=== PATIENT | female | born 1945 | race Caucasian/White ===

== ENCOUNTER 2024-03-13 13:30 | Inpatient (IN) | payer OTHER ==
[2024-03-13 15:19] LABS: BASO % 0.5 % (0-2.0); EOS % 1.6 % (0-4.5); HEMATOCRIT 40.8 % (32.4-45.2); HEMOGLOBIN 13.1 GM/dL (10.7-15.3); LYMPH % 18.7 % (8-40); MCH 30.3 pg (25.7-33.7); MCHC 32.1 g/dl (32.0-36.0); MEAN CELL VOLUME 94.2 fl (80-96); MEAN PLT VOLUME 10.9 fl (7.5-11.1); MONO % 6.1 % (3.8-10.2); NEUT % 73.1 % (42.8-82.8); PLATELET COUNT 158 10^3/uL (134-434); RBC 4.33 M/mm3 (3.60-5.2); RDW 16.5 % (11.6-15.6); WHITE BLOOD COUNT 9.5 K/mm3 (4.0-10.0)
[2024-03-13 15:26] LABS: INR 1.37 (0.83-1.09); PROTHROMBIN TIME (PATIENT) 15.3 SEC (9.7-13.0)
[2024-03-13 15:28] LABS: ACTIVATED PTT 18.9 SECONDS (25.2-36.5)
[2024-03-13] MEDS: SODIUM CHLORIDE 0.9% 500 ML INFUS.BAG IV ONE (15:29)
[2024-03-13 15:36] LABS: EPI CELLS 8 /uL (0-25.1); HYALINE CASTS 0 /uL (0-3.1); URINE APPEARANCE CLOUDY; URINE BACTERIA >9,000 /uL (0-1359); URINE BILIRUBIN NEGATIVE (NEGATIVE); URINE COLOR YELLOW; URINE GLUCOSE (UA) NEGATIVE (NEGATIVE); URINE KETONE NEGATIVE (NEGATIVE); URINE LEUK ESTERASE 3+ (NEGATIVE); URINE NITRITE NEGATIVE (NEGATIVE); URINE PROTEIN 1+ (NEGATIVE); URINE RBC 11 /uL (0-23.9); URINE UROBILINOGEN 0.2 mg/dL (0.2-1.0); URINE WBC 1071 /uL (0-25.8)
[2024-03-13 15:37] LABS: POTASSIUM 5.2 mmol/L (3.5-5.1)
[2024-03-13 15:41] LABS: ALBUMIN 3.3 g/dl (3.4-5.0); BLOOD UREA NITROGEN 39.8 mg/dL (7-18); CALCIUM 9.1 mg/dL (8.5-10.1); VENOUS O2 SATURATION 60.6 % (70-80); VENOUS PCO2 31.1 mmHg (38-52); VENOUS PH 7.43 (7.310-7.410)
[2024-03-13 15:44] LABS: BILIRUBIN,TOTAL 0.7 mg/dL (0.2-1); TOT PROT 6.2 g/dl (6.4-8.2)
[2024-03-13 15:46] LABS: CREATININE 1.9 mg/dL (0.55-1.3)
[2024-03-13] MEDS ORDERED: CEFTRIAXONE 1 GM/50 ML BAG ONE (15:57)
[2024-03-13] MEDS ORDERED: ACETAMINOPHEN INJECTION 100 ML IVPB ONE (16:30)
[2024-03-13] MEDS: ACETAMINOPHEN 1000 MG/100 ML BAG IVPB ONE (16:35)
[2024-03-13] MEDS ORDERED: ACETAMINOPHEN 1000 MG/100 ML BAG IVPB PRN (20:28)
[2024-03-13] MEDS: DEXTROSE 5%-0.45% SALINE 1,000 ML IV SCH (20:46)
[2024-03-14 03:55] VITALS: BMI 23.8
[2024-03-14] MEDS: NYSTATIN 500,000 UNITS/5 ML SUSPENSION PO SCH (05:53)
[2024-03-14] MEDS ORDERED: NYSTATIN 500,000 UNITS/5 ML SUSPENSION PO SCH (06:00)
[2024-03-14 07:33] LABS: POTASSIUM 3.6 mmol/L (3.5-5.1)
[2024-03-14 07:37] LABS: BASO % 0.5 % (0-2.0); EOS % 2.8 % (0-4.5); HEMATOCRIT 40.7 % (32.4-45.2); LYMPH % 18.7 % (8-40); MCH 30.3 pg (25.7-33.7); MCHC 31.9 g/dl (32.0-36.0); MEAN CELL VOLUME 94.9 fl (80-96); MEAN PLT VOLUME 11.1 fl (7.5-11.1); MONO % 5.9 % (3.8-10.2); NEUT % 72.1 % (42.8-82.8); PLATELET COUNT 163 10^3/uL (134-434); RBC 4.29 M/mm3 (3.60-5.2); WHITE BLOOD COUNT 7.4 K/mm3 (4.0-10.0)
[2024-03-14 07:39] LABS: BLOOD UREA NITROGEN 32.8 mg/dL (7-18); CALCIUM 8.6 mg/dL (8.5-10.1); MAGNESIUM 2.5 mg/dL (1.8-2.4)
[2024-03-14 07:43] LABS: CREATININE 1.6 mg/dL (0.55-1.3); PHOSPHOROUS 3.2 mg/dL (2.5-4.9)
[2024-03-14] MEDS ORDERED: COLCHICINE 0.6 MG CAPSULE PO SCH (10:00)
[2024-03-14] MEDS: MEMANTINE HCL 10 MG TABLET (FP) PO SCH (10:57)
[2024-03-14] MEDS: CEFTRIAXONE 1 GM in DEXTROSE 5%-WATER - 50 ML IVPB SCH (10:57)
[2024-03-14] MEDS: metoPROLOL SUCCINATE 25 MG TAB.SR.24H (FP) PO SCH (10:58)
[2024-03-14] MEDS: APIXABAN 2.5 MG TABLET PO SCH (10:58)
[2024-03-14] MEDS: ALLOPURINOL 100 MG TABLET (FP) PO SCH (10:58)
[2024-03-14] MEDS: VITAMINS A AND D TOPICAL OINTMENT TP SCH (11:06)
[2024-03-14] MEDS: MUPIROCIN 2% TOPICAL OINTMENT 22 GM TUBE TP SCH (11:06)
[2024-03-14] MEDS: D5-1/2NS+20 MEQ KCL - 20 MEQ/1,000 ML INFUS.BAG IV SCH (11:53)
[2024-03-14] MEDS: COLCHICINE 0.6 MG TAB PO ONE (11:54)
[2024-03-14] MEDS: DONEPEZIL HCL 10 MG TABLET (FP) PO SCH (22:01)
[2024-03-14] MEDS: DOCUSATE SODIUM 100 MG CAPSULE (FP) PO SCH (22:01)
[2024-03-15 07:26] LABS: BASO % 0.8 % (0-2.0); EOS % 2.9 % (0-4.5); HEMATOCRIT 35.7 % (32.4-45.2); HEMOGLOBIN 11.5 GM/dL (10.7-15.3); LYMPH % 21.2 % (8-40); MCH 30.6 pg (25.7-33.7); MCHC 32.3 g/dl (32.0-36.0); MONO % 7.3 % (3.8-10.2); NEUT % 67.8 % (42.8-82.8); PLATELET COUNT 137 10^3/uL (134-434); RBC 3.76 M/mm3 (3.60-5.2); RDW 16.4 % (11.6-15.6); WHITE BLOOD COUNT 6.1 K/mm3 (4.0-10.0)
[2024-03-15 07:41] LABS: POTASSIUM 4.1 mmol/L (3.5-5.1)
[2024-03-15 07:45] LABS: ALBUMIN 2.8 g/dl (3.4-5.0); BLOOD UREA NITROGEN 27.1 mg/dL (7-18); CALCIUM 8.4 mg/dL (8.5-10.1)
[2024-03-15 07:48] LABS: CREATININE 1.4 mg/dL (0.55-1.3)
[2024-03-15 07:50] LABS: BILIRUBIN,TOTAL 0.4 mg/dL (0.2-1); TOT PROT 5.2 g/dl (6.4-8.2)
[2024-03-15] MEDS: ERTAPENEM SODIUM 1 GM in SODIUM CHLORIDE 50 ML IVPB ONE ×2 (18:21→18:23)
[2024-03-16 06:11] VITALS: TEMP 97.3
[2024-03-16] MEDS: COLCHICINE 0.6 MG TAB PO SCH (10:09)
[2024-03-16] MEDS: FOSFOMYCIN TROMETHAMINE 3 GM/PKT FOR ORAL SOLUTION PO ONE (11:11)
[2024-03-16 15:05] VITALS: BP 117/64; PULSE 52; RESP 22
== END 2024-03-16 15:05 | DRG 689 ==
LOC: JER 13:30 → JERBED 17:03 → J4W 23:57
PROVIDERS: ADMIT Internal Medicine; ATTEND Family Medicine
DX: N39.0 Urinary tract infection, site not specified (principal); G92.8 Other toxic encephalopathy; E87.0 Hyperosmolality and hypernatremia; B37.0 Candidal stomatitis; I48.20 Chronic atrial fibrillation, unspecified; E86.0 Dehydration; M62.81 Muscle weakness (generalized); F03.90 Unspecified dementia, unspecified severity, without behavioral disturbance, psychotic disturbance, mood disturbance, and anxiety; I12.9 Hypertensive chronic kidney disease with stage 1 through stage 4 chronic kidney disease, or unspecified chronic kidney disease; N18.9 Chronic kidney disease, unspecified; R62.7 Adult failure to thrive; Z68.23 Body mass index [BMI] 23.0-23.9, adult; M10.9 Gout, unspecified; B96.4 Proteus (mirabilis) (morganii) as the cause of diseases classified elsewhere; Z95.0 Presence of cardiac pacemaker
CPT/HCPCS: 0241U-QW; 36415; 70450-TC; 71045-TC-FY; 76775-TC; 80048; 80053; 81003; 82803; 82962; 83605; 83735; 84100; 84443; 84484; 85025; 85610; 85730; 87040; 87086; 87186; 93005; 93010; 97116-GP; 97161-GP; 99285-25; J0131

== ENCOUNTER 2024-11-07 10:41 | Inpatient (IN) | payer OTHER ==
[2024-11-07 11:05] VITALS: BMI 24.7
[2024-11-07 12:53] LABS: BASO % 0.6 % (0-2.0); EOS % 2.5 % (0-4.5); HEMATOCRIT 36.6 % (32.4-45.2); LYMPH % 20.4 % (8-40); MCH 30.5 pg (25.7-33.7); MCHC 32.7 g/dl (32.0-36.0); MEAN CELL VOLUME 93.3 fl (80-96); MEAN PLT VOLUME 8.5 fl (7.5-11.1); MONO % 7.3 % (3.8-10.2); NEUT % 69.2 % (42.8-82.8); PLATELET COUNT 223 10^3/uL (134-434); RBC 3.92 M/mm3 (3.60-5.2); RDW 15.3 % (11.6-15.6); WHITE BLOOD COUNT 7.8 K/mm3 (4.0-10.0)
[2024-11-07 13:00] LABS: INR 1.69 (0.83-1.09); PROTHROMBIN TIME (PATIENT) 18.6 SEC (9.7-13.0)
[2024-11-07 13:03] LABS: ACTIVATED PTT 30.1 SECONDS (25.2-36.5)
[2024-11-07] MEDS ORDERED: ACETAMINOPHEN 325 MG TABLET (FP) ONE (13:24)
[2024-11-07 13:30] LABS: POTASSIUM 4.9 mmol/L (3.5-5.1)
[2024-11-07 13:33] LABS: BLOOD UREA NITROGEN 61.8 mg/dL (7-18)
[2024-11-07 13:34] LABS: ALBUMIN 3.6 g/dl (3.4-5.0); CALCIUM 9.2 mg/dL (8.5-10.1)
[2024-11-07 13:36] LABS: CREATININE 1.8 mg/dL (0.55-1.3)
[2024-11-07 13:38] LABS: BILIRUBIN,TOTAL 0.4 mg/dL (0.2-1); TOT PROT 6.7 g/dl (6.4-8.2)
[2024-11-07] MEDS: ACETAMINOPHEN 325 MG TABLET (FP) PO ONE (13:39)
[2024-11-07] MEDS ORDERED: CEFTRIAXONE 2 GM-D5W BAG 2 GM/50 ML BAG IVPB ONE (19:45)
[2024-11-07] MEDS: CEFTRIAXONE 2 GM-D5W BAG 2 GM/50 ML BAG IVPB SCH (19:54)
[2024-11-08 08:18] LABS: BASO % 0.7 % (0-2.0); EOS % 2.9 % (0-4.5); HEMATOCRIT 38.4 % (32.4-45.2); HEMOGLOBIN 12.4 GM/dL (10.7-15.3); LYMPH % 21.9 % (8-40); MCH 30.1 pg (25.7-33.7); MCHC 32.2 g/dl (32.0-36.0); MEAN CELL VOLUME 93.6 fl (80-96); MEAN PLT VOLUME 8.7 fl (7.5-11.1); MONO % 6.3 % (3.8-10.2); NEUT % 68.2 % (42.8-82.8); PLATELET COUNT 220 10^3/uL (134-434); WHITE BLOOD COUNT 6.6 K/mm3 (4.0-10.0)
[2024-11-08 08:20] LABS: POTASSIUM 5.4 mmol/L (3.5-5.1)
[2024-11-08 08:22] LABS: ALBUMIN 3.7 g/dl (3.4-5.0); BLOOD UREA NITROGEN 52.3 mg/dL (7-18); CALCIUM 9.5 mg/dL (8.5-10.1)
[2024-11-08 08:25] LABS: CREATININE 1.7 mg/dL (0.55-1.3)
[2024-11-08 08:27] LABS: BILIRUBIN,TOTAL 0.4 mg/dL (0.2-1)
[2024-11-08] MEDS ORDERED: CEFTRIAXONE 2 GM-D5W BAG 2 GM/50 ML BAG IVPB ONE (11:04)
[2024-11-09] MEDS: metoPROLOL SUCCINATE 25 MG TAB.SR.24H (FP) PO SCH ×2 (10:45→20:02)
[2024-11-09] MEDS: ENOXAPARIN NA (PORCINE) 40 MG/0.4 ML DISP.SYRIN SQ SCH (10:45)
[2024-11-09] MEDS: ALLOPURINOL 100 MG TABLET (FP) PO SCH (10:45)
[2024-11-09] MEDS: VITAMINS A AND D TOPICAL OINTMENT TP SCH (10:55)
[2024-11-09] MEDS: MUPIROCIN 2% TOPICAL OINTMENT 22 GM TUBE TP SCH (10:55)
[2024-11-09 11:58] LABS: POTASSIUM 4.8 mmol/L (3.5-5.1)
[2024-11-09 12:00] LABS: BLOOD UREA NITROGEN 52.3 mg/dL (7-18); CALCIUM 9.3 mg/dL (8.5-10.1)
[2024-11-09 12:03] LABS: CREATININE 1.8 mg/dL (0.55-1.3)
[2024-11-09] MEDS: SODIUM CHLORIDE 0.45% 1,000 ML IV SCH ×2 (13:01→20:02)
[2024-11-09] MEDS: NYSTATIN 500,000 UNITS/5 ML SUSPENSION PO SCH (13:14)
[2024-11-09] MEDS: MEMANTINE HCL 10 MG TABLET (FP) PO SCH ×2 (20:02→22:08)
[2024-11-09] MEDS ORDERED: DONEPEZIL HCL 10 MG TABLET (FP) PO SCH (22:00)
[2024-11-09] MEDS: DONEPEZIL HCL 10 MG TABLET (FP) PO SCH (22:08)
[2024-11-09] MEDS: DOCUSATE SODIUM 100 MG CAPSULE (FP) PO SCH (22:09)
[2024-11-10 09:22] LABS: POTASSIUM 4.5 mmol/L (3.5-5.1)
[2024-11-10 09:25] LABS: CALCIUM 8.8 mg/dL (8.5-10.1)
[2024-11-10 09:26] LABS: BLOOD UREA NITROGEN 42.8 mg/dL (7-18)
[2024-11-10 09:31] LABS: CREATININE 1.8 mg/dL (0.55-1.3)
[2024-11-11 09:17] LABS: BASO % 0.4 % (0-2.0); EOS % 4.4 % (0-4.5); HEMATOCRIT 34.6 % (32.4-45.2); HEMOGLOBIN 10.8 GM/dL (10.7-15.3); LYMPH % 22.2 % (8-40); MCH 29.6 pg (25.7-33.7); MCHC 31.4 g/dl (32.0-36.0); MEAN CELL VOLUME 94.5 fl (80-96); MEAN PLT VOLUME 8.6 fl (7.5-11.1); PLATELET COUNT 175 10^3/uL (134-434); RBC 3.66 M/mm3 (3.60-5.2); RDW 14.9 % (11.6-15.6); WHITE BLOOD COUNT 4.9 K/mm3 (4.0-10.0)
[2024-11-11 09:45] LABS: POTASSIUM 4.6 mmol/L (3.5-5.1)
[2024-11-11 09:55] LABS: BLOOD UREA NITROGEN 35.6 mg/dL (7-18)
[2024-11-11 09:56] LABS: CALCIUM 8.5 mg/dL (8.5-10.1)
[2024-11-11 09:58] LABS: CREATININE 1.5 mg/dL (0.55-1.3)
[2024-11-11] MEDS: ACETAMINOPHEN 500 MG TABLET (FP) PO PRN (18:04)
[2024-11-12] MEDS: MELATONIN 5 MG TABLETS PO ONE (02:25)
[2024-11-12 09:34] LABS: BASO % 0.6 % (0-2.0); EOS % 4.3 % (0-4.5); HEMOGLOBIN 10.9 GM/dL (10.7-15.3); MCH 30.3 pg (25.7-33.7); MCHC 32.1 g/dl (32.0-36.0); MEAN CELL VOLUME 94.5 fl (80-96); MEAN PLT VOLUME 8.6 fl (7.5-11.1); NEUT % 65.1 % (42.8-82.8); PLATELET COUNT 171 10^3/uL (134-434); RDW 14.7 % (11.6-15.6); WHITE BLOOD COUNT 5.3 K/mm3 (4.0-10.0)
[2024-11-12 09:44] LABS: INR 1.17 (0.83-1.09); PROTHROMBIN TIME (PATIENT) 12.8 SEC (9.7-13.0)
[2024-11-12 09:46] LABS: ACTIVATED PTT 32.6 SECONDS (25.2-36.5)
[2024-11-12 10:12] LABS: CALCIUM 8.3 mg/dL (8.5-10.1)
[2024-11-12 10:16] LABS: CREATININE 1.3 mg/dL (0.55-1.3)
[2024-11-12] MEDS ORDERED: ONDANSETRON 4 MG/2 ML VIAL IVPUSH PRN (14:32)
[2024-11-12] MEDS: LACTATED RINGERS SOLUTION 1,000 ML IV SCH (17:00)
[2024-11-13 08:08] LABS: BASO % 0.7 % (0-2.0); EOS % 3.7 % (0-4.5); HEMATOCRIT 32.7 % (32.4-45.2); HEMOGLOBIN 10.8 GM/dL (10.7-15.3); LYMPH % 19.6 % (8-40); MCH 30.9 pg (25.7-33.7); MCHC 32.9 g/dl (32.0-36.0); MEAN CELL VOLUME 93.9 fl (80-96); MEAN PLT VOLUME 8.6 fl (7.5-11.1); MONO % 8.1 % (3.8-10.2); NEUT % 67.9 % (42.8-82.8); PLATELET COUNT 172 10^3/uL (134-434); RBC 3.48 M/mm3 (3.60-5.2); RDW 14.6 % (11.6-15.6); WHITE BLOOD COUNT 6.3 K/mm3 (4.0-10.0)
[2024-11-13 08:21] LABS: POTASSIUM 4.8 mmol/L (3.5-5.1)
[2024-11-13 08:27] LABS: BLOOD UREA NITROGEN 24.1 mg/dL (7-18)
[2024-11-13 08:30] LABS: CREATININE 1.2 mg/dL (0.55-1.3)
[2024-11-13] MEDS: DEXTROSE 5%-0.45% SALINE 1,000 ML IV SCH (12:30)
[2024-11-13] MEDS: MUPIROCIN 2% TOPICAL OINTMENT 22 GM TUBE TP SCH (21:29)
[2024-11-14] MEDS: VITAMINS A AND D TOPICAL OINTMENT TP SCH (09:02)
[2024-11-14 10:36] LABS: BASO % 0.6 % (0-2.0); HEMATOCRIT 33.8 % (32.4-45.2); HEMOGLOBIN 10.9 GM/dL (10.7-15.3); LYMPH % 24.5 % (8-40); MCH 30.3 pg (25.7-33.7); MCHC 32.4 g/dl (32.0-36.0); MEAN CELL VOLUME 93.4 fl (80-96); MEAN PLT VOLUME 8.6 fl (7.5-11.1); MONO % 8.8 % (3.8-10.2); NEUT % 62.1 % (42.8-82.8); PLATELET COUNT 182 10^3/uL (134-434); RBC 3.62 M/mm3 (3.60-5.2); RDW 15.3 % (11.6-15.6); WHITE BLOOD COUNT 5.6 K/mm3 (4.0-10.0)
[2024-11-14 11:00] LABS: POTASSIUM 5.2 mmol/L (3.5-5.1)
[2024-11-14] MEDS ORDERED: MIDAZOLAM HCL 2 MG/2 ML SINGLE DOSE VIAL ONE (11:00)
[2024-11-14 11:03] LABS: CALCIUM 8.9 mg/dL (8.5-10.1)
[2024-11-14 11:04] LABS: BLOOD UREA NITROGEN 20.1 mg/dL (7-18)
[2024-11-14 11:07] LABS: CREATININE 1.4 mg/dL (0.55-1.3)
[2024-11-14] MEDS: LIDOCAINE HCL 1%, 10 MG/ML (20ML VIAL) NR ONE ×3 (11:36)
[2024-11-14] MEDS: IOHEXOL 180 MG/1 ML ML IJ ONE ×3 (11:40)
[2024-11-14] MEDS: HEPARIN NA (PORCINE) 5,000 UNITS/ML 1ML VIAL SQ ONE ×2 (11:46)
[2024-11-14] MEDS ORDERED: HEPARIN NA (PORCINE) 5,000 UNITS/ML 1ML VIAL ONE (11:49)
[2024-11-14] MEDS ORDERED: ACETAMINOPHEN 500 MG TABLET (FP) PO PRN (13:00)
[2024-11-14] MEDS: DEXTROSE 5%-0.45% SALINE 1,000 ML IV SCH (13:06)
[2024-11-14] MEDS: LACTATED RINGERS SOLUTION 1,000 ML IV SCH (13:59)
[2024-11-14] MEDS: SODIUM ZIRCONIUM CYCLOSILICATE (LOKELMA) 5 GM PACKET PO SCH (15:31)
[2024-11-14] MEDS: NYSTATIN 500,000 UNITS/5 ML SUSPENSION PO SCH (18:42)
[2024-11-14] MEDS: DONEPEZIL HCL 10 MG TABLET (FP) PO SCH (21:12)
[2024-11-14] MEDS: DOCUSATE SODIUM 100 MG CAPSULE (FP) PO SCH (21:12)
[2024-11-14] MEDS: MUPIROCIN 2% TOPICAL OINTMENT 22 GM TUBE TP SCH (21:13)
[2024-11-14] MEDS: MEMANTINE HCL 10 MG TABLET (FP) PO SCH (21:13)
[2024-11-15 08:12] LABS: HEMATOCRIT 32.7 % (32.4-45.2); HEMOGLOBIN 10.7 GM/dL (10.7-15.3); MCH 30.6 pg (25.7-33.7); MCHC 32.6 g/dl (32.0-36.0); MEAN CELL VOLUME 94.1 fl (80-96); MEAN PLT VOLUME 8.3 fl (7.5-11.1); PLATELET COUNT 176 10^3/uL (134-434); RBC 3.48 M/mm3 (3.60-5.2); RDW 14.8 % (11.6-15.6); WHITE BLOOD COUNT 6.5 K/mm3 (4.0-10.0)
[2024-11-15 08:30] LABS: POTASSIUM 4.6 mmol/L (3.5-5.1)
[2024-11-15 08:35] LABS: BLOOD UREA NITROGEN 16.2 mg/dL (7-18); CALCIUM 8.7 mg/dL (8.5-10.1)
[2024-11-15 08:39] LABS: CREATININE 1.2 mg/dL (0.55-1.3)
[2024-11-15] MEDS: CEFTRIAXONE 2 GM-D5W BAG 2 GM/50 ML BAG IVPB SCH (09:43)
[2024-11-15] MEDS: SODIUM ZIRCONIUM CYCLOSILICATE (LOKELMA) 5 GM PACKET PO SCH (09:43)
[2024-11-15] MEDS: metoPROLOL SUCCINATE 25 MG TAB.SR.24H (FP) PO SCH (09:43)
[2024-11-15] MEDS: ALLOPURINOL 100 MG TABLET (FP) PO SCH (09:43)
[2024-11-15] MEDS: ENOXAPARIN NA (PORCINE) 40 MG/0.4 ML DISP.SYRIN SQ SCH (09:43)
[2024-11-15] MEDS: VITAMINS A AND D TOPICAL OINTMENT TP SCH (09:44)
[2024-11-16 13:39] VITALS: TEMP 97.7
[2024-11-16 15:22] VITALS: BP 141/64; PULSE 73; RESP 18
== END 2024-11-16 18:53 | DRG 270 ==
LOC: JER 10:41 → JERBED 13:50 → J8W 11-08 20:11
PROVIDERS: ADMIT Internal Medicine; ATTEND Internal Medicine
PROC: 04CQ3ZZ Extirpation of Matter from Left Anterior Tibial Artery, Percutaneous Approach (ICD-10-PCS; principal; 2024-11-15)
PROC: 047Q3ZZ Dilation of Left Anterior Tibial Artery, Percutaneous Approach (ICD-10-PCS; 2024-11-15)
PROC: 047U3ZZ Dilation of Left Peroneal Artery, Percutaneous Approach (ICD-10-PCS; 2024-11-15)
PROC: 02HV33Z Insertion of Infusion Device into Superior Vena Cava, Percutaneous Approach (ICD-10-PCS; 2024-11-15)
PROC: B518ZZA Fluoroscopy of Superior Vena Cava, Guidance (ICD-10-PCS; 2024-11-15)
DX: I70.208 Unspecified atherosclerosis of native arteries of extremities, other extremity (principal); G92.8 Other toxic encephalopathy; I48.20 Chronic atrial fibrillation, unspecified; N17.9 Acute kidney failure, unspecified; L97.518 Non-pressure chronic ulcer of other part of right foot with other specified severity; L97.528 Non-pressure chronic ulcer of other part of left foot with other specified severity; M86.8X7 Other osteomyelitis, ankle and foot; L03.031 Cellulitis of right toe; I70.209 Unspecified atherosclerosis of native arteries of extremities, unspecified extremity; F03.90 Unspecified dementia, unspecified severity, without behavioral disturbance, psychotic disturbance, mood disturbance, and anxiety; I12.9 Hypertensive chronic kidney disease with stage 1 through stage 4 chronic kidney disease, or unspecified chronic kidney disease; N18.9 Chronic kidney disease, unspecified; R62.7 Adult failure to thrive; Z68.24 Body mass index [BMI] 24.0-24.9, adult; M10.9 Gout, unspecified; Z95.0 Presence of cardiac pacemaker; M20.42 Other hammer toe(s) (acquired), left foot; M20.41 Other hammer toe(s) (acquired), right foot; E87.5 Hyperkalemia
CPT/HCPCS: 36415; 36569; 73630-TC-LT; 73630-TC-RT-FY; 76000-TC-FY; 78315-TC; 80048; 80053; 82962; 85025; 85027; 85610; 85730; 86850; 86900; 86901; 87635; 93005; 93010; 93922; 93925-TC; 94760; 97161-GP; 99285-25; A9503; C1760; C1769; C1894; G0463-25; J1644

== ENCOUNTER 2025-04-02 13:36 | Inpatient (IN) | payer OTHER ==
[2025-04-02 15:36] LABS: ABSOLUTE IMMATURE GRANULOCYTES 0.19 x10^3/uL (0.0-0.031); BASOPHILS # 0.04 x10^3/uL (0.01-0.08); EOSINOPHIL % 1.9 % (0.7-5.8); EOSINOPHILS # 0.21 x10^3/uL (0.04-0.36); MCHC 28.8 g/dl (32.2-35.5); MEAN CELL VOLUME 96.1 fl (79.4-94.8); MEAN PLT VOLUME 10.0 fl (9.4-12.3); MONOCYTE # 0.55 x10^3/uL (0.24-0.86); MONOCYTE % 4.9 % (4.7-12.5); RDW 15.6 % (12.5-17.0)
[2025-04-02 15:43] LABS: INR 1.59 (0.83-1.09); PROTHROMBIN TIME (PATIENT) 17.5 SEC (9.7-13.0)
[2025-04-02 15:46] LABS: ACTIVATED PTT 33.8 SECONDS (25.2-36.5)
[2025-04-02 15:58] LABS: CO2 22.0 mmol/L (21-32); GLUCOSE,RANDOM 112.0 mg/dL (74-106)
[2025-04-02 16:01] LABS: CREATININE 2.5 mg/dL (0.55-1.3)
[2025-04-02 16:02] LABS: SGOT/AST 19.0 U/L (15-37); SGPT/ALT 15.0 U/L (13-61); TOT PROT 5.7 g/dl (6.4-8.2)
[2025-04-02 16:03] LABS: ALK PHOS 122.0 U/L (45-117)
[2025-04-02 17:04] LABS: EPI CELLS >36 /uL (0-25.1); HYALINE CASTS 0 /uL (0-3.1); URINE APPEARANCE TURBID; URINE BACTERIA 8143 /uL (0-1359); URINE BILIRUBIN NEGATIVE (NEGATIVE); URINE COLOR YELLOW; URINE GLUCOSE (UA) NEGATIVE (NEGATIVE); URINE KETONE NEGATIVE (NEGATIVE); URINE LEUK ESTERASE 3+ (NEGATIVE); URINE NITRITE NEGATIVE (NEGATIVE); URINE PROTEIN 1+ (NEGATIVE); URINE UROBILINOGEN 0.2 mg/dL (0.2-1.0); URINE WBC 28975 /uL (0-25.8)
[2025-04-02] MEDS: LACTATED RINGERS SOLUTION 1000 ML INFUS.BAG IV ONE (17:41)
[2025-04-02 18:33] LABS: URINE RBC 647.1 /uL (0-23.9)
[2025-04-02] MEDS ORDERED: MEROPENEM 1 GM VIAL (RESTRICTED TO ID) IVPB ONE (20:32)
[2025-04-02] MEDS ORDERED: DEXTROSE 5%-WATER 100 ML IVPB ONE (20:33)
[2025-04-02] MEDS: MEROPENEM 1 GM in DEXTROSE 5%-WATER 100 ML IVPB ONE (20:43)
[2025-04-03] MEDS: PIPERACILLIN/TAZOB 2.25 GM 2.25 GM in DEXTROSE 5%-WATER - 50 ML IVPB SCH ×2 (02:44→12:26)
[2025-04-03 03:33] LABS: EPI CELLS 27 /uL (0-25.1); HYALINE CASTS 0 /uL (0-3.1); URINE APPEARANCE TURBID; URINE BACTERIA 4068 /uL (0-1359); URINE BILIRUBIN NEGATIVE (NEGATIVE); URINE COLOR YELLOW; URINE GLUCOSE (UA) NEGATIVE (NEGATIVE); URINE KETONE NEGATIVE (NEGATIVE); URINE LEUK ESTERASE 3+ (NEGATIVE); URINE NITRITE NEGATIVE (NEGATIVE); URINE PROTEIN 1+ (NEGATIVE); URINE UROBILINOGEN 0.2 mg/dL (0.2-1.0); URINE WBC 8749 /uL (0-25.8)
[2025-04-03 04:16] LABS: URINE RBC 65.4 /uL (0-23.9)
[2025-04-03 06:11] VITALS: BMI 32.1
[2025-04-03 08:03] LABS: ABSOLUTE IMMATURE GRANULOCYTES 0.47 x10^3/uL (0.0-0.031); BASOPHILS # 0.04 x10^3/uL (0.01-0.08); EOSINOPHIL % 2.2 % (0.7-5.8); EOSINOPHILS # 0.21 x10^3/uL (0.04-0.36); MCHC 28.8 g/dl (32.2-35.5); MEAN CELL VOLUME 95.6 fl (79.4-94.8); MEAN PLT VOLUME 9.8 fl (9.4-12.3); MONOCYTE # 0.67 x10^3/uL (0.24-0.86); MONOCYTE % 6.9 % (4.7-12.5); RDW 15.4 % (12.5-17.0)
[2025-04-03 08:41] LABS: CREATININE 2.1 mg/dL (0.55-1.3); GLUCOSE,RANDOM 99.0 mg/dL (74-106)
[2025-04-03 08:43] LABS: CO2 23.0 mmol/L (21-32)
[2025-04-03 08:44] LABS: ALK PHOS 108.0 U/L (45-117); SGPT/ALT 14.0 U/L (13-61)
[2025-04-03 08:45] LABS: SGOT/AST 15.0 U/L (15-37)
[2025-04-03 08:48] LABS: LDH 200.0 U/L (84-246)
[2025-04-03 08:51] LABS: TOT PROT 5.4 g/dl (6.4-8.2)
[2025-04-03 08:58] LABS: IRON SERUM 24 ug/dL (50-175)
[2025-04-03] MEDS: GABAPENTIN 100 MG CAPSULE PO SCH (10:42)
[2025-04-03] MEDS: MEMANTINE HCL 5 MG TABLET (UD) PO SCH (10:42)
[2025-04-03] MEDS: ZINC SULFATE 220 MG CAPSULE (FP) PO SCH (10:42)
[2025-04-03] MEDS: ASCORBIC ACID 500 MG TABLET (FP) PO SCH (10:42)
[2025-04-03] MEDS: METOPROLOL TARTRATE 25 MG TABLET (FP) PO SCH (10:42)
[2025-04-03] MEDS: ALLOPURINOL 100 MG TABLET (FP) PO SCH (10:42)
[2025-04-03] MEDS: SODIUM HYPOCHLORITE 0.25%- 473 ML BULK BOTTLE TP SCH (14:45)
[2025-04-03] MEDS: PIPERACILLIN/TAZOB 2.25 GM 2.25 GM/50 ML BAG IVPB SCH (18:32)
[2025-04-03] MEDS: MUPIROCIN 2% TOPICAL OINTMENT 22 GM TUBE TP SCH (21:33)
[2025-04-03] MEDS: DONEPEZIL HCL 10 MG TABLET (FP) PO SCH (21:34)
[2025-04-03] MEDS: ACETAMINOPHEN 325 MG TABLET (FP) PO PRN (22:07)
[2025-04-04 07:25] VITALS: RESP 18
[2025-04-04 09:28] VITALS: BP 117/73; PULSE 82; TEMP 98.4
[2025-04-04] MEDS: IRON SUCROSE INJECTION 200 MG in SODIUM CHLORIDE 100 ML IVPB ONE (10:47)
== END 2025-04-04 13:30 | DRG 193 ==
LOC: JER 13:36 → OBSVTOIN 21:24 → JERBED 21:24 → J7W 23:51
PROVIDERS: ADMIT Student in an Organized Health Care Education/Training Program; ATTEND Family Medicine
DX: J18.9 Pneumonia, unspecified organism (principal); L89.154 Pressure ulcer of sacral region, stage 4; N39.0 Urinary tract infection, site not specified; N17.9 Acute kidney failure, unspecified; F03.90 Unspecified dementia, unspecified severity, without behavioral disturbance, psychotic disturbance, mood disturbance, and anxiety; I12.9 Hypertensive chronic kidney disease with stage 1 through stage 4 chronic kidney disease, or unspecified chronic kidney disease; I73.9 Peripheral vascular disease, unspecified; D64.9 Anemia, unspecified; I48.91 Unspecified atrial fibrillation; N18.9 Chronic kidney disease, unspecified
CPT/HCPCS: 36415; 70450-TC; 71045-TC-FY; 71250-TC; 74176-TC; 80053; 81003; 82728; 83010; 83540; 83550; 83605; 83615; 83735; 84100; 84484; 85025; 85610; 85730; 86850; 86900; 86901; 87070; 87081; 87086; 87205; 87637-QW; 87899; 93005; 93010; 93306-TC; 99285-25; J1756